=== PATIENT | male | born 1955 | race Caucasian/White ===

== ENCOUNTER 2016-09-04 10:01 | Emergency (ER) | payer MEDICARE, MEDICAID ==
[~2016-09-04] VITALS: Ht 177.8 cm; Wt 85.6 kg
[2016-09-04 11:34] LABS: BASOPHILS % (AUTO) 0 % (0-2); EOSINOPHILS # (AUTO) 0.1 10^3uL; EOSINOPHILS % (AUTO) 1 % (0-4); LYMPHOCYTES # (AUTO) 2.4 X10^3; MEAN CORPUSCULAR HEMOGLOBIN 31.7 PG (26.0-34.0); MEAN CORPUSCULAR HGB CONC 34.3 g/dL (31.0-37.0); MEAN CORPUSCULAR VOLUME 93 FL (80-100); MEAN PLATELET VOLUME 12.1 FL (6.0-9.5); MONOCYTES # (AUTO) 0.7 X10^3; MONOCYTES % (AUTO) 10 % (3-11); NEUTROPHILS # (AUTO) 4.1 X10^3; NEUTROPHILS % (AUTO) 56 % (51-67); PLATELET COUNT 154 10^3uL (150-450); WHITE BLOOD COUNT 7.32 10^3uL (4.0-11.0)
[2016-09-04 11:54] LABS: ANION GAP 13.1 MEQ/L (3-15); CALCULATED IONIZED CALCIUM 4.3 mg/dL (3.8-4.6); TOTAL PROTEIN 7.1 g/dL (6.4-8.5)
[2016-09-04 12:22] VITALS: BP 160/77
== END 2016-09-04 12:24 | disposition home or self-care (01) ==
LOC: ED 10:02
DX: R41.82 Altered mental status, unspecified (principal)
CPT/HCPCS: 36415; 80053; 85025; 99282; 99283

== ENCOUNTER → 2016-10-26 | Outpatient (REF) | payer MEDICARE, MEDICAID ==
[2016-10-26 08:37] LABS: ALBUMIN 4.3 g/dL (3.4-5.0); ANION GAP 16.9 MEQ/L (3-15); CALCULATED IONIZED CALCIUM 4.1 mg/dL (3.8-4.6); TOTAL PROTEIN 7.5 g/dL (6.4-8.5)
[2016-10-26 08:44] LABS: MEAN CORPUSCULAR HEMOGLOBIN 31.3 PG (26.0-34.0); MEAN CORPUSCULAR HGB CONC 33.7 g/dL (31.0-37.0); MEAN CORPUSCULAR VOLUME 93 FL (80-100); PLATELET COUNT 149 10^3uL (150-450); WHITE BLOOD COUNT 6.15 10^3uL (4.0-11.0)
[2016-10-26 10:16] LABS: BAND NEUTROPHILS % 0 % (0-6); EOSINOPHILS % 4 % (0-4); LYMPHOCYTES # 3.6 #; MONOCYTES # 0.5 #; MONOCYTES % 8 % (3-11); SEGMENTED NEUTROPHILS % 29 % (51-67); TOTAL CELLS COUNTED 100
[2016-10-26 10:17] LABS: RBC MORPH NORMAL (NORMAL)
== END ==
LOC: LAB 08:17
PROVIDERS: ATTEND Family Medicine
DX: G40.801 Other epilepsy, not intractable, with status epilepticus (principal); E78.4 Other hyperlipidemia; I10 Essential (primary) hypertension; E03.8 Other specified hypothyroidism; F06.2 Psychotic disorder with delusions due to known physiological condition; N39.498 Other specified urinary incontinence; F70 Mild intellectual disabilities; F32.2 Major depressive disorder, single episode, severe without psychotic features; Z12.5 Encounter for screening for malignant neoplasm of prostate
CPT/HCPCS: 80053; 80061; 80156; 80164; 84443; 85025; G0103; 84153